=== PATIENT | female | born 1940 | race Caucasian/White ===

== ENCOUNTER 2017-11-06 13:25 | Day surgery (SDC) | payer MEDICARE ==
[~2017-11-06] VITALS: Ht 167.6 cm; Wt 75.0 kg
[~2017-11-06 13:25] MED LIST: ARIMIDEX PO; ASPI325 PO; Arthritis Pain650 M1 PO; BENHYD1012; CALCIUM + D3 E1 EACH PO; Ferrous Sulfat325 M2 PO; OMEPRAZOLE MAGN20 MG PO; [UNRECOGNIZED DRUG - CODE] PO
== END 2017-11-06 18:05 | disposition home or self-care (01) ==
LOC: ORSCSDS 13:25
PROVIDERS: Podiatrist Foot & Ankle Surgery
PROC: 0SGM04Z Fusion of Right Metatarsal-Phalangeal Joint with Internal Fixation Device, Open Approach (ICD-10-PCS; principal; 2017-11-06 14:45)
PROC: 0L8V0ZZ Division of Right Foot Tendon, Open Approach (ICD-10-PCS; principal; 2017-11-06 14:45)
PROC: 0QSN04Z Reposition Right Metatarsal with Internal Fixation Device, Open Approach (ICD-10-PCS; principal; 2017-11-06 14:45)
DX: M20.11 Hallux valgus (acquired), right foot (principal); M20.41 Other hammer toe(s) (acquired), right foot; S93.129A Dislocation of metatarsophalangeal joint of unspecified toe(s), initial encounter; I10 Essential (primary) hypertension; E78.00 Pure hypercholesterolemia, unspecified; E11.9 Type 2 diabetes mellitus without complications; Z79.899 Other long term (current) drug therapy
CPT/HCPCS: C1713; J0171; J0690; J1100; J2405; J3010; J7120

== ENCOUNTER → 2018-06-25 | Outpatient (CLI) | payer MEDICARE ==
[2018-06-27 15:07] LABS: HPV 16 Negative (Negative); HPV 18 Negative (Negative); HPV OTHER HR TYPES Negative (Negative)
== END | disposition home or self-care (01) ==
LOC: LAB SHORT 14:37 → LAB 14:37
PROVIDERS: Obstetrics & Gynecology
DX: Z01.419 Encounter for gynecological examination (general) (routine) without abnormal findings (principal)
CPT/HCPCS: 87624; G0123

== ENCOUNTER 2018-09-21 08:45 | Day surgery (SDC) | payer MEDICARE ==
[~2018-09-21] VITALS: Ht 167.6 cm; Wt 72.9 kg
[2018-09-21] MEDS ORDERED: VITAMIN D10000 UNIT PO (09:33)
== END 2018-09-21 12:23 | disposition home or self-care (01) ==
LOC: ORSCSDS 08:45
PROVIDERS: Podiatrist Foot & Ankle Surgery
PROC: 0SGN04Z Fusion of Left Metatarsal-Phalangeal Joint with Internal Fixation Device, Open Approach (ICD-10-PCS; principal; 2018-09-21 10:00)
DX: M20.12 Hallux valgus (acquired), left foot (principal); M20.22 Hallux rigidus, left foot; I10 Essential (primary) hypertension; K21.9 Gastro-esophageal reflux disease without esophagitis; Z79.899 Other long term (current) drug therapy; Z79.82 Long term (current) use of aspirin
CPT/HCPCS: C1713; J0690; J2250; J3010; J7120

== ENCOUNTER 2021-04-21 09:25 | Day surgery (SDC) | payer MEDICARE ==
[~2021-04-21] VITALS: Ht 165.1 cm; Wt 71.3 kg
[~2021-04-21 09:25] MED LIST changes: +BENHYD1012 PO; +LEVSOD75 PO; +OMEP20ER PO; +PEPCID20 MG PO; +VITAMIN D10000 UNIT PO
--- NOTE | 2021-04-21 18:45 | NUR ---
SHIFT SUMMARY PATIENT NEW ADMIT TO UNIT POST OP LEFT TOTAL HIP. ALERT AND ORIENTED. TOLERATING REGULAR DIET AND FLUIDS. ROUTINE IV FLUIDS AND ABX RUNNING. MINIMAL PAIN, CONTROLLED WITH NON-NARCOTIC PAIN MEDS. BULKY DRESSING TO LEFT HIP C/D/I. WORKED WELL WITH PHYSICAL THERAPY. SBA WITH FWW AND GAIT BELT UP TO CHAIR AND COMMODE. VOIDING WELL. PLAN TO DISCHARGE 04/22/21 AFTER CLEARING PHYSICAL THERAPY.
[2021-04-22 04:40] LABS: BASOPHILS ABSOLUTE AUTO 0.01 K/mm3 (0.00-0.23); BASOPHILS PERCENT AUTO 0 % (0-2); Hematocrit 25.1 % (33.0-51.0); Hemoglobin 8.2 g/dL (11.5-16.0); LYMPHOCYTES ABSOLUTE AUTO 0.93 K/mm3 (0.84-5.20); LYMPHOCYTES PERCENT AUTO 7 % (21-46); MONOCYTES ABSOLUTE AUTO 1.06 K/mm3 (0.16-1.47); MONOCYTES PERCENT AUTO 9 % (4-13); Mean Corpuscular HGB 26.4 pg (26.0-34.0); Mean Corpuscular HGB Conc 32.7 g/dL (31.5-36.5); Mean Corpuscular Volume 81 fL (80-100); Mean Platelet Volume 10.1 fL (9.1-12.4); Platelet Count 268 K/mm3 (150-400); RDW Coefficient Variation 14.4 % (11.7-14.2); RDW Standard Deviation 42.1 fL (35.1-46.3); Red Blood Cell Count 3.11 M/mm3 (3.80-5.20); White Blood Cell Count 12.49 K/mm3 (4.00-11.30)
[2021-04-22 05:18] LABS: EOSINOPHILS PERCENT AUTO 0 % (0-6); IMMATURE GRAN ABSOLUTE AUTO 0.05 K/mm3 (0.00-0.10); IMMATURE GRAN PERCENT AUTO 0 % (0-1); NEUTROPHILS ABSOLUTE AUTO 10.44 K/mm3 (1.96-9.15); NEUTROPHILS PERCENT AUTO 84 % (41-73)
[2021-04-22 05:26] LABS: Anion Gap 8 mmol/L (6-16); Blood Urea Nitrogen 20 mg/dL (8-24); Bun/Creatinine Ratio 23.3 (12.0-20.0); CO2, Blood 24 mmol/L (21-32); Calcium, Blood 8.9 mg/dL (8.5-10.1); Chloride, Blood 96 mmol/L (98-108); Creatinine, Blood 0.86 mg/dL (0.40-1.00); Glomerular Filtration Rate >60 (60-); Glucose, Blood 199 mg/dL (70-99); Magnesium, Blood 1.8 mg/dL (1.6-2.4); Potassium, Blood 4.4 mmol/L (3.5-5.5); Sodium, Blood 128 mmol/L (136-145)
--- NOTE | 2021-04-22 06:44 | NUR ---
PT A/OX4. VSS ON RA. PAIN MANAGED WELL W/ SCHEDULED AND PRN PAIN MEDS. PT AMBULATED IN HALLWAY AND TO TOILET W/ FWW AND GAITBELT. PATIENT ONLY SLEPT 2-2 HRS, PER PT THIS IS NORMAL FOR HER. USING CALL LIGHT TO MAKE NEEDS KOWN.
[2021-04-22] MEDS ORDERED: ENOX40I SC (11:24)
--- NOTE | 2021-04-22 12:53 | NUR ---
DISCHARGE SUMMARY PATIENT ALERT AND ORIENTED THROUGHOUT SHIFT. TOLERATING REGULAR DIET AND FLUIDS. VOIDING WELL. CLEARED FOR DISCHARGE BY PHYSICAL THERAPY. PAIN CONTROLLED WITH PO PAIN MEDS. DISCHARGE EDUCATION GIVEN ON WOUND CARE, ACTIVITY, NEW RXS, FOLLOW UP APPOINTMENTS. IV DC'D WNL. PATIENT LEFT UNIT VIA WHEELCHAIR FOR HOME AT 1220.
== END 2021-04-22 12:15 | disposition home or self-care (01) ==
LOC: ORSCMMR 09:25 → SURS 13:47 → ORSCMMR 14:15 → ORD 14:15 → ORSCMMR 04-22 12:15
PROVIDERS: Orthopaedic Surgery
PROC: 0SRB0JA Replacement of Left Hip Joint with Synthetic Substitute, Uncemented, Open Approach (ICD-10-PCS; principal; 2021-04-21 10:45)
PROC: 8E0YXBZ Computer Assisted Procedure of Lower Extremity (ICD-10-PCS; principal; 2021-04-21 10:45)
DX: M16.12 Unilateral primary osteoarthritis, left hip (principal); I10 Essential (primary) hypertension; J45.909 Unspecified asthma, uncomplicated; K21.9 Gastro-esophageal reflux disease without esophagitis; E03.9 Hypothyroidism, unspecified; Z79.899 Other long term (current) drug therapy
CPT/HCPCS: 36415; 72170; 80048; 83735; 85025; 97110; 97116; 97162; 97166; 97530; 97535; A9270; C1713; C1776; J0171; J0690; J0735; J1100; J1650; J1885; J2250; J2370; J2405; J2704; J2795; J3010; J3370; J7120

== ENCOUNTER 2021-05-05 11:58 | Emergency (ER) | payer MEDICARE ==
[~2021-05-05] VITALS: Ht 157.5 cm; Wt 77.1 kg
[~2021-05-05 11:58] MED LIST changes: +ENOX40I SC
[2021-05-05] MEDS ORDERED: HYDROCODONE-AC1 EA13 PO (12:36)
[2021-05-05 13:38] LABS: BASOPHILS ABSOLUTE AUTO 0.02 K/mm3 (0.00-0.23); BASOPHILS PERCENT AUTO 0 % (0-2); EOSINOPHILS ABSOLUTE AUTO 0.07 K/mm3 (0.00-0.68); EOSINOPHILS PERCENT AUTO 1 % (0-6); Hematocrit 25.8 % (33.0-51.0); Hemoglobin 8.5 g/dL (11.5-16.0); IMMATURE GRAN ABSOLUTE AUTO 0.06 K/mm3 (0.00-0.10); IMMATURE GRAN PERCENT AUTO 1 % (0-1); LYMPHOCYTES ABSOLUTE AUTO 1.75 K/mm3 (0.84-5.20); LYMPHOCYTES PERCENT AUTO 29 % (21-46); MONOCYTES ABSOLUTE AUTO 0.53 K/mm3 (0.16-1.47); MONOCYTES PERCENT AUTO 9 % (4-13); Mean Corpuscular HGB 27.2 pg (26.0-34.0); Mean Corpuscular HGB Conc 32.9 g/dL (31.5-36.5); Mean Corpuscular Volume 83 fL (80-100); NEUTROPHILS ABSOLUTE AUTO 3.52 K/mm3 (1.96-9.15); NEUTROPHILS PERCENT AUTO 59 % (41-73); RDW Standard Deviation 46.9 fL (35.1-46.3); Red Blood Cell Count 3.12 M/mm3 (3.80-5.20); White Blood Cell Count 5.95 K/mm3 (4.00-11.30)
[2021-05-05 13:41] LABS: Mean Platelet Volume 10.8 fL (9.1-12.4); Platelet Count 94 K/mm3 (150-400)
[2021-05-05 14:31] LABS: Source, Urine Clean Catch
[2021-05-05 14:33] LABS: Alanine Aminotransfer (ALT/SGP 20 U/L (12-78); Albumin, Blood 2.9 g/dL (3.4-5.0); Albumin/Globulin Ratio 0.8 (0.8-1.8); Alk Phos 74 U/L (50-136); Anion Gap 9 mmol/L (6-16); Aspartate Aminotrans (AST/SGOT 17 U/L (12-37); Bilirubin, Total 0.3 mg/dL (0.1-1.0); Blood Urea Nitrogen 18 mg/dL (8-24); Bun/Creatinine Ratio 26.2 (12.0-20.0); CO2, Blood 24 mmol/L (21-32); Calcium, Blood 8.9 mg/dL (8.5-10.1); Chloride, Blood 97 mmol/L (98-108); Creatinine, Blood 0.69 mg/dL (0.40-1.00); Globulin, Blood 3.6 g/dL (2.2-4.0); Glomerular Filtration Rate >60 (60-); Glucose, Blood 109 mg/dL (70-99); Potassium, Blood 4.1 mmol/L (3.5-5.5); Sodium, Blood 130 mmol/L (136-145); Total Protein, Blood 6.5 g/dL (6.4-8.2)
[2021-05-05 14:49] LABS: Appearance, Urine Clear (Clear); Bilirubin, Urine Neg (Neg); Blood, Urine Neg (Neg); Glucose Qualitative, Urine Neg (Neg); Ketones, Urine Neg (Neg); Leukocyte Esterase, Urine Neg (Neg); Nitrite, Urine Neg (Neg); Protein, Urine Neg (Neg); Specific Gravity, Urine 1.005 (1.003-1.022); Urobilinogen, Urine NORM (Normal); pH, Urine 6.5 (5.0-8.0)
[2021-05-05 14:50] LABS: Color, Urine Pale Yellow (P-Yellow)
[2021-05-05] MEDS ORDERED: OXAYDO5 M1 PO (16:25)
== END 2021-05-05 16:30 | disposition home or self-care (01) ==
LOC: ER 11:58
PROVIDERS: Emergency Medicine
DX: M25.552 Pain in left hip (principal); G89.18 Other acute postprocedural pain; F05 Delirium due to known physiological condition; Z88.2 Allergy status to sulfonamides
CPT/HCPCS: 36415; 73502; 73562-LT; 80053; 81003; 85025; 99284-25; A9270

== ENCOUNTER 2023-03-14 10:03 | Inpatient (IN) | payer MEDICARE ==
[~2023-03-14] VITALS: Ht 167.6 cm; Wt 74.1 kg
[~2023-03-14 10:03] MED LIST changes: +HYDROCODONE-AC1 EA13 PO; +OXAYDO5 M1 PO
[2023-03-14 10:33] LABS: BASOPHILS ABSOLUTE AUTO 0.02 K/mm3 (0.00-0.23); BASOPHILS PERCENT AUTO 0 % (0-2); EOSINOPHILS ABSOLUTE AUTO 0.01 K/mm3 (0.00-0.68); EOSINOPHILS PERCENT AUTO 0 % (0-6); Hematocrit 35.8 % (33.0-51.0); Hemoglobin 12.6 g/dL (11.5-16.0); IMMATURE GRAN ABSOLUTE AUTO 0.02 K/mm3 (0.00-0.10); IMMATURE GRAN PERCENT AUTO 0 % (0-1); LYMPHOCYTES PERCENT AUTO 23 % (21-46); MONOCYTES ABSOLUTE AUTO 0.58 K/mm3 (0.16-1.47); MONOCYTES PERCENT AUTO 13 % (4-13); Mean Corpuscular HGB 31.9 pg (26.0-34.0); Mean Corpuscular HGB Conc 35.2 g/dL (31.5-36.5); Mean Corpuscular Volume 91 fL (80-100); Mean Platelet Volume 10.1 fL (9.1-12.4); NEUTROPHILS ABSOLUTE AUTO 2.82 K/mm3 (1.96-9.15); NEUTROPHILS PERCENT AUTO 64 % (41-73); Platelet Count 207 K/mm3 (150-400); RDW Coefficient Variation 12.1 % (11.7-14.2); RDW Standard Deviation 40.3 fL (35.1-46.3); Red Blood Cell Count 3.95 M/mm3 (3.80-5.20); White Blood Cell Count 4.45 K/mm3 (4.00-11.30)
[2023-03-14 10:54] LABS: International Normalized Ratio 0.96; Prothrombin Time Results 10.1 Sec (9.7-11.5)
[2023-03-14 11:04] LABS: Albumin, Blood 3.5 g/dL (3.4-5.0); Albumin/Globulin Ratio 1.1 (0.8-1.8); Bilirubin, Total 0.6 mg/dL (0.1-1.0); Bun/Creatinine Ratio 18.6 (12.0-20.0); Calcium, Blood 8.9 mg/dL (8.5-10.1); Creatinine, Blood 0.81 mg/dL (0.40-1.00); Globulin, Blood 3.1 g/dL (2.2-4.0); Potassium, Blood 4.4 mmol/L (3.5-5.5); Total Protein, Blood 6.6 g/dL (6.4-8.2)
[2023-03-14 14:00] VITALS: BP 179/58
--- NOTE | 2023-03-14 14:57 | NUR ---
MEDICATION LIST VERIFIED FROM PHARMACY
[2023-03-14 15:50] VITALS: BP 170/67
[2023-03-14 15:51] VITALS: BP 170/67
--- NOTE | 2023-03-14 18:14 | NUR ---
PT ARRIVED FROM ER THIS AFTERNOON. SEE ADMISSION CHARTING FOR FULL NEURO ASSESSMENT. PT ARRIVES A/O X3, SHE HAS EQUAL STRENGTH BETWEEN LEFT AND RIGHT SIDES. BUT APPEARS TO HAVE POOR COORDINATION WITH RT SIDE. FINE MOTOR SKILLS SEEM TO BE VERY DECREASED. PT REPORTS RIGHT SIDED PERIPHERAL VISION IS BLURRED, AND REPORTS SLITS OF BLINDNESS IN HER RIGHT SIDE OF VISION IN BOTH EYES. NO NYSTAGMUS NOTED, NO EXTRAOCCULAR EYE MOVEMENTS NOTED DURING NEURO EXAM. PT IS A TWO PERSON ASSIST TO BEDSIDE COMMODE, DRAGS RIGHT FOOT WITH AMBULATION. SHE FOLLOWS COMMANDS, SHE DOES EXPRESSES THAT SHE IS FRUSTRATED WITH ADMISSION QUESTIONS. HTN NOTED, PER DR GRAVES IS AWARE PRESSURE IS BEING MAINTAINED WITHIN THIS RANGE AT THIS TIME. DAUGHTER IS AWARE OF LUNG CANCER DIAGNOSIS, AT THIS TIME WE WILL NOT BE SHARING DIAGNOSIS WITH SPOUSE PER REQUEST OF FAMILY. PT PASSED BEDSIDE SWALLOW TEST, ORDER OBTAINED FOR FULL DIET.
[2023-03-14 19:48] VITALS: BP 180/73
[2023-03-15] VITALS (9 sets, daily range): BP systolic 135–195; BP diastolic 60–79
[2023-03-15 04:21] LABS: BASOPHILS ABSOLUTE AUTO 0.01 K/mm3 (0.00-0.23); BASOPHILS PERCENT AUTO 0 % (0-2); EOSINOPHILS ABSOLUTE AUTO 0.02 K/mm3 (0.00-0.68); EOSINOPHILS PERCENT AUTO 0 % (0-6); Hematocrit 32.5 % (33.0-51.0); Hemoglobin 11.5 g/dL (11.5-16.0); IMMATURE GRAN ABSOLUTE AUTO 0.02 K/mm3 (0.00-0.10); IMMATURE GRAN PERCENT AUTO 0 % (0-1); LYMPHOCYTES ABSOLUTE AUTO 1.06 K/mm3 (0.84-5.20); LYMPHOCYTES PERCENT AUTO 23 % (21-46); MONOCYTES ABSOLUTE AUTO 0.54 K/mm3 (0.16-1.47); MONOCYTES PERCENT AUTO 12 % (4-13); Mean Corpuscular HGB 31.6 pg (26.0-34.0); Mean Corpuscular HGB Conc 35.4 g/dL (31.5-36.5); Mean Corpuscular Volume 89 fL (80-100); Mean Platelet Volume 10.1 fL (9.1-12.4); NEUTROPHILS ABSOLUTE AUTO 2.94 K/mm3 (1.96-9.15); NEUTROPHILS PERCENT AUTO 64 % (41-73); Platelet Count 204 K/mm3 (150-400); RDW Coefficient Variation 11.9 % (11.7-14.2); RDW Standard Deviation 38.5 fL (35.1-46.3); Red Blood Cell Count 3.64 M/mm3 (3.80-5.20); White Blood Cell Count 4.59 K/mm3 (4.00-11.30)
[2023-03-15 04:49] LABS: Bilirubin, Total 0.5 mg/dL (0.1-1.0); Bun/Creatinine Ratio 19.2 (12.0-20.0); Calcium, Blood 8.8 mg/dL (8.5-10.1); Creatinine, Blood 0.73 mg/dL (0.40-1.00); Globulin, Blood 2.9 g/dL (2.2-4.0); Potassium, Blood 3.8 mmol/L (3.5-5.5); Total Protein, Blood 5.9 g/dL (6.4-8.2)
--- NOTE | 2023-03-15 06:46 | NUR ---
SHIFT SUMMARY PT IS A/Ox3-4 AND MOSTLY COOPERATIVE WITH CARE PROVIDED BY MEMBERS OF STAFF. ANSWERS QUESTIONS APPROPRIATELY AND ABLE TO MAKE HER NEEDS KNOWN. NO ACUTE EVENTS OVERNIGHT. PT CONTINUES TO HAVE RIGHT SIDED DEFICITS INCLUDING FACIAL DROOP, ARM/LEG WEAKNESS, AND BLURRED VISION WHEN GAZING TO THE RIGHT. NO EXTRAOCCULAR MOVEMENTS NOTED. CARDIAC SHAY, REMAINS IN SR-ST, 60-100'S WITH NO C/O CP OR PRESSURE T/O THE NIGHT. SBP HAS RANGED IN 140-170'S. RESPIRATORY SHAY, MAINTAINS SPO2 >92% ON RA WITH NO C/O SOB OR DYSPNEA. ABLE TO ABULATE TO BSC WITH 1-2 PERSON ASSIST WITH FWW AND GAITBELT. MRI TO BE PERFORMED THIS AM, CHECK OFF SHEET COMPLETED. LR HAS BEEN INFUSING ORDERED VIA EMAR. NO NEW ORDERS AT THIS TIME, WILL REPORT TO ONCOMING RN. ELAINA MATOS AT THIS TIME.
--- NOTE | 2023-03-15 12:40 | NUR ---
UPDATE AT 1200, PT WAS HEARD ATTEMPTING TO SIT UP AT EDGE OF BED. THIS RN ENTERED ROOM AND ASKED IF THE PT NEEDED ANYTHING. PT STATED THAT SHE NEEDS TO "USE THE RESTROOM." THIS RN ASSISTED PT TO BEDSIDE COMMODE WITH GAIT BELT. PT ABLE TO SHUFFLE AND PIVOT TO COMMODE. PT REMINDED TO CALL FOR ASSISTANCE WHEN NEEDING TO GET UP. WIPES AND CALL LIGHT PLACED NEXT TO PT AND PT INSTRUCTED TO HIT THE CALL LIGHT BUTTON WHEN SHE WAS FINISHED. PT AGREED. AT 1205, THIS RN CHECKED ON PT, PT HAD CLIMBED BACK INTO BED ON HER OWN AND WAS TRYING TO SLIDE HERSELF UP IN THE BED. PT BOOSTED IN BED BY STAFF. PT REMINDED THAT SHE NEEDS TO CALL FOR ASSISTANCE, PT STILL VERBALLY AGREES. BED ALARM IN PLACE.
--- NOTE | 2023-03-15 12:48 | NUR ---
[facility] CONTACTED THIS RN ABOUT PRESNTATION OF PT. THIS RN ASSESSED PT, RIGHT FACIAL DROOP MORE PROMINENT AT THIS TIME. PT HAD SOME DIFFICULTY REMEBERING NAME OF HOSPITAL WHICH SHE WAS ABLE TO REMEMBER THIS MORNING. PT ASKED TO CLOSE HER EYES AND HOLD ARM OUT IN FRONT OF HERSELF, RIGHT ARM DRIFTED DOWN. PT PUPILS WERE DILATED TO 5 AND SLUGGISH. WHEN ASKED IF SYMPTOMS FEEL WORSE, PT ANSWERED "I THINK SO." PT CREMATORY ATTENDANT STRNGTH ASSESSED, RIGHT HAND WEAKNESS INCREASED FROM THIS MORNING ASSESSMENT. NOTIFIED OF PRESENT CONDITION.
--- NOTE | 2023-03-15 17:58 | NUR ---
SHIFT SUMMARY PT A/OX3-4 AT BEGINNING OF SHIFT, FORGETFUL AT TIMES. PT HAD SLIGHT RIGHT SIDED DEFICIT DURING MORNING ASSESSMENT. PT WAS ABLE TO TRANSFER TO [facility] WITH 1 PERSON ASSIST. VSS. AROUND MID SHIFT, PT WAS SEEN BY JEREMIAH NICK, SEE THERAPIST NOTES. PT CVA SYMPTOMS HAVE INCREASED AT THIS TIME, SEE THIS RN NOTES. PT ATTEMPTED TO CLIMB OUT OF BED ON HER OWN EVEN AFTER BEING INSTRUCTED TO CALL FOR ASSISTANCE, BED ALARM TURNED ON. PT RIGHT SIDE DEFICIT CONTINUED TO BECOME MORE PROMINENT, NOTIFED OF RECENT ASSESSMENT. PT SEEN BY PHYSICAL THERAPIST, SEE THERAPIST NOTE, PT NOW A 2 PERSON ASSIST. PT DAUGHTER UPDATED ON PT CONDITION. LR RUNNING PER EMAR.
[2023-03-16 01:19] VITALS: BP 144/60
[2023-03-16 03:26] VITALS: BP 155/58
--- NOTE | 2023-03-16 05:23 | NUR ---
SHIFT SUMMARY: Upon initial assessment- left side no deficits, right side weak, can shrug right shoulder and slightly lift right leg against gravity. Weak grasp on right hand. Reports blurred vision on right side and decreased sensation on right. Some expressive aphasia/ difficulty with word finding noted. Oriented x3. Right facial droop and left gaze preference. Unable to look all the way to the right laterally. Pupils equal and reactive. Pleasant and cooperative. Pt transfered back to bed with 2 person max assist and gait belt. At around 2100, she became anxious and tearful. She calmed down after drinking some water and repositioning. She had several incontinent episodes overnight and used the bedpan once. Bed bath done. Brief in place. Bed alarm in place, she has not tried to get out of bed tonight. She has slept and remained calm for the rest of the night after 2200.
[2023-03-16 07:28] VITALS: BP 157/84
--- NOTE | 2023-03-16 14:53 | NUR ---
Spiritual care visit conducted. Patient is sitting up in bed and alert. 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 Her dtr, Tiff, is present and aides in telling her stories. She is angry that this medical event has happened to her and wants GOd to fix it (along with the medical insurance collector). We talk through the complexities of the body and the healing process. Patient burst into tears the moment I started to pray and prayed outloud as well asking God for help and healing. We talk about how to remain steady in the storms and the power of her family and friends who are here to support and love her. She shows great signs of adapting to her situation and has increased peace. I will cotninue to remain available to pateint and family.
--- NOTE | 2023-03-16 14:58 | NUR ---
TRANSFER UPDATE REPORT GIVEN TO MED FLOOR RN AT 1358. HAD FAMILY VISITING AND [facility] AT BEDSIDE AT THIS TIME. [facility] VISIT CONCLUDED AND FAMILY UPDATED ON TRANSFER INFO. PT LEFT PCU AT 1430 VIA HOSPITAL BED. PT DAUGHTER PRESENT FOR TRANSFER.
[2023-03-16 15:20] VITALS: BP 174/73
--- NOTE | 2023-03-16 16:23 | NUR ---
LATE ENTRY- IN HOUSE TRANSFER PT TRANSFERED FROM PCU TO MED UNIT. FAMILY AT BEDSIDE. RIGHT SIDE DEFECIT WITH STUDDER/STAMMER. PT ABLE TO MAKE NEEDS KNOWN. PT APPEARS TO BE ANXIOUS. PER REPORT FROM WORK CHECKER, PT REPORTED BEING ANXIOUS AND STRESSED ABOUT HER CURRENT SITUATION AND ABILITY TO TAKE CARE OF HOUSE/FAMILY/PET NEEDS. PT IS RESTING QUIETLY NOW WITH EYES SHUT. CHANGED DIET TO 2 GRAM LOW SODIUM TO REFLECT DR. BRADY STATEMENT IN PROGRESS NOTE. PHYSICAL THERAPY CAME TO SEE PT ON HER ARRIVAL TO THE UNIT. R/A. PER REPORT, 2 PERSON MAX ASSIST.
--- NOTE | 2023-03-16 17:02 | NUR ---
CALLED DR. GRAVES TO CLARIFY DIET ORDER. CHANGED DIET TO ADA.
[2023-03-16 19:37] VITALS: BP 184/72
[2023-03-17 00:54] VITALS: BP 181/73
[2023-03-17 05:03] LABS: BASOPHILS ABSOLUTE AUTO 0.01 K/mm3 (0.00-0.23); BASOPHILS PERCENT AUTO 0 % (0-2); EOSINOPHILS PERCENT AUTO 0 % (0-6); Hematocrit 34.9 % (33.0-51.0); Hemoglobin 12.7 g/dL (11.5-16.0); IMMATURE GRAN ABSOLUTE AUTO 0.02 K/mm3 (0.00-0.10); IMMATURE GRAN PERCENT AUTO 0 % (0-1); LYMPHOCYTES ABSOLUTE AUTO 0.79 K/mm3 (0.84-5.20); LYMPHOCYTES PERCENT AUTO 9 % (21-46); MONOCYTES ABSOLUTE AUTO 0.87 K/mm3 (0.16-1.47); MONOCYTES PERCENT AUTO 9 % (4-13); Mean Corpuscular HGB 32.3 pg (26.0-34.0); Mean Corpuscular HGB Conc 36.4 g/dL (31.5-36.5); Mean Corpuscular Volume 89 fL (80-100); Mean Platelet Volume 9.8 fL (9.1-12.4); NEUTROPHILS ABSOLUTE AUTO 7.53 K/mm3 (1.96-9.15); NEUTROPHILS PERCENT AUTO 82 % (41-73); Platelet Count 214 K/mm3 (150-400); RDW Standard Deviation 39.1 fL (35.1-46.3); Red Blood Cell Count 3.93 M/mm3 (3.80-5.20); White Blood Cell Count 9.22 K/mm3 (4.00-11.30)
[2023-03-17 05:21] LABS: Bun/Creatinine Ratio 13.4 (12.0-20.0); Calcium, Blood 8.9 mg/dL (8.5-10.1); Creatinine, Blood 0.67 mg/dL (0.40-1.00); Potassium, Blood 3.1 mmol/L (3.5-5.5)
--- NOTE | 2023-03-17 05:57 | NUR ---
Shift Summary Pt c/o constipation at start of shift and impulsively tried to stand up to evacuate bowels despite severe L sided deficits. She has multiple loose BMs. Pt later complained of severe pain in her legs and was medicated per emar. Pt hypertensive t/o the night with systolic around 183, given PRN Hydralazine. She is very distressed by her situation and discomfort and had a few episodes of heavy anxiety.
[2023-03-17 07:24] VITALS: BP 123/96
--- NOTE | 2023-03-17 13:48 | NUR ---
Attempted to visit pt, but she appears tired. Her eyes are red, glossy. She states she hasn't gotten good rest the past couple of days. She denies any pain or SOB. Assisted her with readjusting pillows, and closed the door to her room to alleviate extra noises. Pt's granddaughter states via phone she will be arriving tomorrow to assist with decision making. Granddaughter is an RN.
--- NOTE | 2023-03-17 15:31 | NUR ---
Spiritual Care | Nurse Request Pt. is awake in bed and displays high levels of anxiety. Nurse contacted this director gift as they were concerned that the Pt. was verbalizing that she wanted to "give up and ." After nurse Tellez administered some medication Pastoral encouragement was given and this director gift connected her to her previous visit with Family Development Extension Specialist Tim. Pt. was mimicking verbally what was being said around her. It sounded like word salad. Pt. agreed to pray with this director gift. Pt. displayed evidence of lower anxiety and a calmer spirit.
--- NOTE | 2023-03-17 15:58 | NUR ---
Sent volunteer to visit with family for theraputic support
[2023-03-17 16:39] VITALS: BP 168/74
[2023-03-17 17:02] VITALS: BP 176/71
--- NOTE | 2023-03-17 18:07 | NUR ---
PT HAS BEEN PLEASANT TODAY. DID HAVE SOME EPISODE OF CRYING OUT AND WANTING TO BE DONE. THAT KELLY MAY TAKE HER. OFFERED COMFORT. RETAIL EXPERIENCE SPECIALIST CALLED AND SAW PT. ALSO HAD AN EPISODE OF LEG PAIN. MED PER EMAR. PT CONTINUES TO HAVE RT SIDE WEAKNESS. PT MORE RELAXED AT THIS TIME. NO NEW CONCERNS NOTED. BED IN LOW POSITION, CALL LITE IN REACH, BED ALARM ON FOR SAFETY
[2023-03-17 18:13] VITALS: BP 159/65
[2023-03-17 21:17] VITALS: BP 152/65
--- NOTE | 2023-03-18 01:06 | NUR ---
Patient keeps crying out saying just let me just let me , i just want to .
[2023-03-18 04:03] VITALS: BP 154/58
--- NOTE | 2023-03-18 05:34 | NUR ---
Shift Summary No c/o constipation this shift. Pt had two episodes of leg pain and despair, stating 'i want to ' repeatedly. She was given PRN IV Morphene for pain and the episodes quickly ended. Purewick in place draining urine well. Complete R sided deficit remains.
[2023-03-18 05:35] LABS: Bun/Creatinine Ratio 16.8 (12.0-20.0); Calcium, Blood 8.8 mg/dL (8.5-10.1); Creatinine, Blood 0.66 mg/dL (0.40-1.00); Potassium, Blood 3.6 mmol/L (3.5-5.5)
[2023-03-18 06:55] LABS: SARS-Cov-2 (COVID-19) PCR, MMC NEGATIVE (NEGATIVE)
[2023-03-18 07:13] VITALS: BP 169/71
[2023-03-18] MEDS ORDERED: Acetaminophen325 M1 PO (12:03)
[2023-03-18] MEDS ORDERED: AMLO5 PO (12:04)
[2023-03-18] MEDS ORDERED: ATOR80 PO (12:04)
[2023-03-18] MEDS ORDERED: ASPI81CH PO (12:04)
[2023-03-18] MEDS ORDERED: Prinivil10 MG PO (12:08)
[2023-03-18] MEDS ORDERED: INSULANPEN SC (12:08)
[2023-03-18] MEDS ORDERED: DOCU100 PO (12:08)
[2023-03-18] MEDS ORDERED: CLOP75 PO (12:09)
[2023-03-18] MEDS ORDERED: HYDR10 PO (12:12)
--- NOTE | 2023-03-18 13:27 | NUR ---
DC- REPORT CALLED AND GIVEN TO [facility]. ALL QUESTIONS ANSWERED. PT LEFT IN WC WITH TRANSPORT ACCOMPANIED BY DAUGHTER ANDREZ TO REHAB. PT LEFT IN STABLE CONDITION WITH ALL BELONGINGS.
[2023-03-19] MEDS ORDERED: Ativan0.5 MG SL (18:44)
== END 2023-03-18 13:07 | DRG 65 ==
LOC: ER 10:03 → MEDS 12:40 → PCU 12:40 → MEDS 03-16 14:42 → ENPENDDIS 03-18 11:11 → MEDS 03-18 13:07
PROVIDERS: Emergency Medicine; Family Medicine; Internal Medicine; ADMIT Internal Medicine
DX: I63.81 Other cerebral infarction due to occlusion or stenosis of small artery (principal); C34.12 Malignant neoplasm of upper lobe, left bronchus or lung; E87.1 Hypo-osmolality and hyponatremia; C78.1 Secondary malignant neoplasm of mediastinum; I62.9 Nontraumatic intracranial hemorrhage, unspecified; G81.91 Hemiplegia, unspecified affecting right dominant side; G93.40 Encephalopathy, unspecified; I65.02 Occlusion and stenosis of left vertebral artery; Z66 Do not resuscitate; I10 Essential (primary) hypertension; E78.5 Hyperlipidemia, unspecified; E11.65 Type 2 diabetes mellitus with hyperglycemia; R29.810 Facial weakness; Z20.822 Contact with and (suspected) exposure to COVID-19; E03.9 Hypothyroidism, unspecified; K44.9 Diaphragmatic hernia without obstruction or gangrene; R91.1 Solitary pulmonary nodule; R91.8 Other nonspecific abnormal finding of lung field; H53.9 Unspecified visual disturbance; E87.6 Hypokalemia; Z79.890 Hormone replacement therapy; Z79.891 Long term (current) use of opiate analgesic; Z79.899 Other long term (current) drug therapy; Z90.89 Acquired absence of other organs; Z88.2 Allergy status to sulfonamides; Z96.641 Presence of right artificial hip joint; Z90.12 Acquired absence of left breast and nipple; Z85.3 Personal history of malignant neoplasm of breast
CPT/HCPCS: 36415; 70450; 70496; 70498; 70553; 71045; 71250; 80048; 80053; 82947; 83036; 85025; 85610; 85730; 92523; 92526; 92610; 93005; 93010; 93306; 94762; 97112; 97112-CQ; 97116; 97162; 97530; 99285-25; A9270; A9579; J0360; J1650; J1815; J2270; J7120; Q9967; U0002

== ENCOUNTER 2023-03-19 15:46 | Emergency (ER) | payer MEDICARE ==
[~2023-03-19] VITALS: Ht 162.6 cm; Wt 63.5 kg
[~2023-03-19 15:46] MED LIST changes: +AMLO5 PO; +ASPI81CH PO; +ATOR80 PO; +Acetaminophen325 M1 PO; +CLOP75 PO; +DOCU100 PO; +HYDR10 PO; +INSULANPEN SC; +Prinivil10 MG PO
[2023-03-19 17:00] LABS: Calcium, Ionized (POC) 1.14 mmol/L (1.10-1.46); Chloride (POC) 97 mmol/L (98-108); Creatinine (POC) 0.7 mg/dL (0.6-1.0); Glucose (ISTAT POC) 154 mg/dL (70-99); Hemoglobin (POC) 12.6 g/dL (12.0-16.0); Sodium (POC) 128 mmol/L (135-148); Total CO2 (POC) 24 mmol/L (21-32)
[2023-03-19] MEDS ORDERED: Ativan0.5 MG SL (18:44)
[2023-03-19 19:00] VITALS: BP 150/62
== END 2023-03-19 19:47 | disposition home or self-care (01) ==
LOC: ER 15:46
PROVIDERS: Emergency Medicine
DX: I69.951 Hemiplegia and hemiparesis following unspecified cerebrovascular disease affecting right dominant side (principal); I69.920 Aphasia following unspecified cerebrovascular disease; Z88.2 Allergy status to sulfonamides; Z79.899 Other long term (current) drug therapy; Z79.82 Long term (current) use of aspirin; Z79.4 Long term (current) use of insulin
CPT/HCPCS: 70450; 80047; 85014; 93971; 99285-25

== ENCOUNTER → 2023-09-21 | Outpatient (CLI) | payer MEDICARE ==
[~2023-09-21] MED LIST changes: +Ativan0.5 MG SL
[2023-09-21 20:29] LABS: BASOPHILS ABSOLUTE AUTO 0.03 K/mm3 (0.00-0.23); BASOPHILS PERCENT AUTO 0 % (0-2); EOSINOPHILS ABSOLUTE AUTO 0.12 K/mm3 (0.00-0.68); EOSINOPHILS PERCENT AUTO 2 % (0-6); Hematocrit 27.5 % (33.0-51.0); Hemoglobin 9.5 g/dL (11.5-16.0); IMMATURE GRAN ABSOLUTE AUTO 0.06 K/mm3 (0.00-0.10); IMMATURE GRAN PERCENT AUTO 1 % (0-1); LYMPHOCYTES ABSOLUTE AUTO 2.43 K/mm3 (0.84-5.20); LYMPHOCYTES PERCENT AUTO 30 % (21-46); MONOCYTES ABSOLUTE AUTO 0.76 K/mm3 (0.16-1.47); MONOCYTES PERCENT AUTO 10 % (4-13); Mean Corpuscular HGB 30.5 pg (26.0-34.0); Mean Corpuscular HGB Conc 34.5 g/dL (31.5-36.5); Mean Corpuscular Volume 88 fL (80-100); Mean Platelet Volume 9.7 fL (9.1-12.4); NEUTROPHILS PERCENT AUTO 57 % (41-73); Platelet Count 344 K/mm3 (150-400); RDW Coefficient Variation 13.6 % (11.7-14.2); RDW Standard Deviation 43.2 fL (35.1-46.3); Red Blood Cell Count 3.11 M/mm3 (3.80-5.20)
[2023-09-21 20:53] LABS: Alanine Aminotransfer (ALT/SGP 30 U/L (12-78); Albumin, Blood 3.6 g/dL (3.4-5.0); Alk Phos 75 U/L (50-136); Anion Gap 6 mmol/L (6-16); Aspartate Aminotrans (AST/SGOT 16 U/L (12-37); Bilirubin, Total 0.3 mg/dL (0.1-1.0); Blood Urea Nitrogen 20 mg/dL (8-24); CHOL/HDL RATIO 2.8; CO2, Blood 26 mmol/L (21-32); Calcium, Blood 9.6 mg/dL (8.5-10.1); Chloride, Blood 96 mmol/L (98-108); Cholesterol 155 mg/dL (50-200); Creatinine, Blood 0.59 mg/dL (0.40-1.00); Globulin, Blood 3.5 g/dL (2.2-4.0); Glomerular Filtration Rate 89 (60-); Glucose, Blood 145 mg/dL (70-99); HDL Cholesterol 56 mg/dL (>39); LDL/HDL RATIO 1.2; Low Density Lipoprotein Chol 69 mg/dL (0-110); Potassium, Blood 4.4 mmol/L (3.5-5.5); Sodium, Blood 128 mmol/L (136-145); Total Protein, Blood 7.1 g/dL (6.4-8.2); Triglycerides 152 mg/dL (30-160); Very Low Density Lipoprot Chol 30 mg/dL (6-32)
== END ==
LOC: LAB 16:41 → LAB SHORT 16:41
PROVIDERS: Pediatrics Pediatric Nephrology
DX: I10 Essential (primary) hypertension (principal); E03.9 Hypothyroidism, unspecified; E78.5 Hyperlipidemia, unspecified
CPT/HCPCS: 80053; 80061; 84443; 85025

== ENCOUNTER → 2023-09-27 | Outpatient (CLI) | payer MEDICARE ==
[2023-09-27 16:10] LABS: Alanine Aminotransfer (ALT/SGP 29 U/L (12-78); Albumin, Blood 3.6 g/dL (3.4-5.0); Alk Phos 81 U/L (50-136); Anion Gap 7 mmol/L (6-16); Aspartate Aminotrans (AST/SGOT 13 U/L (12-37); Bilirubin, Total 0.5 mg/dL (0.1-1.0); Blood Urea Nitrogen 20 mg/dL (8-24); Bun/Creatinine Ratio 31.9 (12.0-20.0); CHOL/HDL RATIO 2.7; CO2, Blood 26 mmol/L (21-32); Calcium, Blood 9.1 mg/dL (8.5-10.1); Chloride, Blood 96 mmol/L (98-108); Cholesterol 162 mg/dL (50-200); Creatinine, Blood 0.63 mg/dL (0.40-1.00); Globulin, Blood 3.5 g/dL (2.2-4.0); Glomerular Filtration Rate 88 (60-); Glucose, Blood 188 mg/dL (70-99); HDL Cholesterol 60 mg/dL (>39); LDL/HDL RATIO 1.1; Low Density Lipoprotein Chol 68 mg/dL (0-110); Potassium, Blood 3.7 mmol/L (3.5-5.5); Sodium, Blood 129 mmol/L (136-145); Total Protein, Blood 7.1 g/dL (6.4-8.2); Triglycerides 170 mg/dL (30-160); Very Low Density Lipoprot Chol 34 mg/dL (6-32)
== END | disposition home or self-care (01) ==
LOC: LAB 13:00 → LAB SHORT 13:00
PROVIDERS: Nurse Practitioner Family
DX: E78.5 Hyperlipidemia, unspecified (principal); E03.9 Hypothyroidism, unspecified; I10 Essential (primary) hypertension
CPT/HCPCS: 80053; 80061; 84443

== ENCOUNTER 2023-11-06 22:55 | Emergency (ER) | payer MEDICARE ==
[~2023-11-06] VITALS: Ht 167.6 cm; Wt 77.1 kg
[2023-11-07] MEDS ORDERED: MIRALAX17 GM PO (00:36)
[2023-11-07] MEDS ORDERED: Celexa10 MG PO (00:37)
[2023-11-07] MEDS ORDERED: BUSP10 PO ×2 (00:38→03:49)
[2023-11-07] MEDS ORDERED: DICL75ER PO (00:39)
[2023-11-07] MEDS ORDERED: BACL10 PO ×2 (00:39→03:49)
[2023-11-07 03:12] LABS: Magnesium, Blood 1.9 mg/dL (1.6-2.4)
[2023-11-07 03:13] LABS: Albumin, Blood 3.4 g/dL (3.4-5.0); Bilirubin, Total 0.4 mg/dL (0.1-1.0); Bun/Creatinine Ratio 27.5 (12.0-20.0); Calcium, Blood 9.5 mg/dL (8.5-10.1); Creatinine, Blood 0.66 mg/dL (0.40-1.00); Globulin, Blood 3.3 g/dL (2.2-4.0); Phosphorus, Blood 3.1 mg/dL (2.5-4.9); Potassium, Blood 4.1 mmol/L (3.5-5.5); Total Protein, Blood 6.7 g/dL (6.4-8.2)
[2023-11-07 03:29] LABS: BASOPHILS ABSOLUTE AUTO 0.03 K/mm3 (0.00-0.23); BASOPHILS PERCENT AUTO 1 % (0-2); EOSINOPHILS ABSOLUTE AUTO 0.09 K/mm3 (0.00-0.68); EOSINOPHILS PERCENT AUTO 2 % (0-6); Hematocrit 25.8 % (33.0-51.0); Hemoglobin 8.3 g/dL (11.5-16.0); IMMATURE GRAN ABSOLUTE AUTO 0.02 K/mm3 (0.00-0.10); IMMATURE GRAN PERCENT AUTO 0 % (0-1); LYMPHOCYTES ABSOLUTE AUTO 2.03 K/mm3 (0.84-5.20); LYMPHOCYTES PERCENT AUTO 33 % (21-46); MONOCYTES ABSOLUTE AUTO 0.56 K/mm3 (0.16-1.47); MONOCYTES PERCENT AUTO 9 % (4-13); Mean Corpuscular HGB 24.6 pg (26.0-34.0); Mean Corpuscular HGB Conc 32.2 g/dL (31.5-36.5); Mean Corpuscular Volume 77 fL (80-100); Mean Platelet Volume 9.1 fL (9.1-12.4); NEUTROPHILS ABSOLUTE AUTO 3.41 K/mm3 (1.96-9.15); NEUTROPHILS PERCENT AUTO 56 % (41-73); Platelet Count 409 K/mm3 (150-400); RDW Coefficient Variation 16.9 % (11.7-14.2); RDW Standard Deviation 47.1 fL (35.1-46.3); Red Blood Cell Count 3.37 M/mm3 (3.80-5.20); White Blood Cell Count 6.14 K/mm3 (4.00-11.30)
[2023-11-07 04:00] VITALS: BP 135/67
== END 2023-11-07 04:15 | disposition home or self-care (01) ==
LOC: ER 22:55
PROVIDERS: Emergency Medicine
DX: M79.604 Pain in right leg (principal); M79.605 Pain in left leg; Z86.73 Personal history of transient ischemic attack (TIA), and cerebral infarction without residual deficits; Z79.02 Long term (current) use of antithrombotics/antiplatelets; Z79.4 Long term (current) use of insulin; Z79.899 Other long term (current) drug therapy; Z88.2 Allergy status to sulfonamides
CPT/HCPCS: 80053; 83735; 84100; 85025; 99283; A9270

== ENCOUNTER 2023-11-18 07:53 | Emergency (ER) | payer MEDICARE ==
[~2023-11-18] VITALS: Ht 167.6 cm; Wt 81.7 kg
[~2023-11-18 07:53] MED LIST changes: +BACL10 PO; +BUSP10 PO; +Celexa10 MG PO; +DICL75ER PO; +MIRALAX17 GM PO
[2023-11-18 08:16] LABS: BASOPHILS ABSOLUTE AUTO 0.01 K/mm3 (0.00-0.23); BASOPHILS PERCENT AUTO 0 % (0-2); EOSINOPHILS PERCENT AUTO 0 % (0-6); Hematocrit 21.6 % (33.0-51.0); Hemoglobin 6.8 g/dL (11.5-16.0); IMMATURE GRAN ABSOLUTE AUTO 0.03 K/mm3 (0.00-0.10); IMMATURE GRAN PERCENT AUTO 0 % (0-1); LYMPHOCYTES ABSOLUTE AUTO 0.83 K/mm3 (0.84-5.20); LYMPHOCYTES PERCENT AUTO 12 % (21-46); MONOCYTES ABSOLUTE AUTO 0.21 K/mm3 (0.16-1.47); MONOCYTES PERCENT AUTO 3 % (4-13); Mean Corpuscular HGB 23.2 pg (26.0-34.0); Mean Corpuscular HGB Conc 31.5 g/dL (31.5-36.5); Mean Corpuscular Volume 74 fL (80-100); NEUTROPHILS ABSOLUTE AUTO 5.71 K/mm3 (1.96-9.15); NEUTROPHILS PERCENT AUTO 84 % (41-73); Platelet Count 349 K/mm3 (150-400); RDW Coefficient Variation 17.2 % (11.7-14.2); RDW Standard Deviation 46.4 fL (35.1-46.3); Red Blood Cell Count 2.93 M/mm3 (3.80-5.20); White Blood Cell Count 6.79 K/mm3 (4.00-11.30)
[2023-11-18] MEDS ORDERED: Acetaminophen 500 MG Tab PO ONE (08:20)
[2023-11-18] MEDS ORDERED: Haloperidol Lactate Inj. 5 MG/ML Injection IV ONE (08:30)
[2023-11-18 08:36] LABS: Albumin, Blood 3.5 g/dL (3.4-5.0); Albumin/Globulin Ratio 1.1 (0.8-1.8); Bilirubin, Total 0.5 mg/dL (0.1-1.0); Bun/Creatinine Ratio 31.1 (12.0-20.0); Calcium, Blood 8.9 mg/dL (8.5-10.1); Creatinine, Blood 0.55 mg/dL (0.40-1.00); Globulin, Blood 3.2 g/dL (2.2-4.0); Potassium, Blood 3.8 mmol/L (3.5-5.5); Total Protein, Blood 6.7 g/dL (6.4-8.2)
[2023-11-18 08:58] LABS: IMMATURE RETIC FRACTION 28.9 % (2.3-16.0); RETIC HGB EQUIVALENT 21.7 pg (28.20-36.60); RETICULOCYTE ABSOLUTE 0.0395 M/mm3 (0.0200-0.1100); RETICULOCYTE COUNT PERCENT 1.38 % (0.50-2.50)
[2023-11-18] MEDS ORDERED: Morphine Sulfate 4 MG/1 ML Injection IV ONE ×2 (09:05→10:25)
[2023-11-18 09:12] LABS: Influenza A, PCR NEGATIVE (NEGATIVE); Influenza B, PCR NEGATIVE (NEGATIVE); Resp Syncytial Virus, PCR NEGATIVE (NEGATIVE); SARS-Cov-2 (COVID-19) PCR, MMC NEGATIVE (NEGATIVE)
[2023-11-18 09:23] LABS: Percent Saturation 4.8 % (15.0-50.0)
[2023-11-18] MEDS ORDERED: Sod Ferric Gluc Complx/Sucrose 125 MG in NS 100 ML IV ONE (11:00)
[2023-11-18 11:29] LABS: Source, Urine Straight Cath
[2023-11-18 11:36] LABS: Appearance, Urine Clear (Clear); Bilirubin, Urine Neg (Neg); Blood, Urine 1+ (Neg); Color, Urine Yellow (P-Yellow); Glucose Qualitative, Urine 2+ (Neg); Ketones, Urine Neg (Neg); Leukocyte Esterase, Urine Neg (Neg); Nitrite, Urine Neg (Neg); Protein, Urine 2+ (Neg); Specific Gravity, Urine 1.025 (1.003-1.022); Urobilinogen, Urine NORM (Normal)
[2023-11-18 11:45] LABS: Bacteria Rare /hpf; Mucus Light (0-Heavy); Squamous Epithelial Cells Not Seen /hpf (Few)
[2023-11-18] MEDS ORDERED: QUET25 PO (12:10)
[2023-11-18] MEDS ORDERED: Ferrous Sulfat325 MG PO (12:11)
[2023-11-18 14:15] VITALS: BP 134/71
--- NOTE | 2023-11-18 17:54 | NUR ---
Pt returned to er with altered mental staus and increased symptoms of pain and aggitation. Reivew of her day to day life with daughter. She is presenting the patient with more possible neurological symptoms. She has been vominging more. Presenting more sleep disturbance and severe bouts of pain. Advised will contact her primary and specialist for update. pt started on seroquel. May benefit from gabipentin she was on it at one time. kps score is 30%. We reviewed hospice, concern for increased suffering and congative decline. Suggest hospice for dignity and comfort. Pt very high fall risk. After speaking with daughter she has not had sleep shoing great strain from caregiver. will update provider.
== END 2023-11-18 14:28 | disposition home or self-care (01) ==
LOC: ER 07:53
PROVIDERS: Emergency Medicine
DX: D50.9 Iron deficiency anemia, unspecified (principal); R41.0 Disorientation, unspecified; R51.9 Headache, unspecified; G89.29 Other chronic pain; I10 Essential (primary) hypertension; E03.9 Hypothyroidism, unspecified; K21.9 Gastro-esophageal reflux disease without esophagitis; E78.5 Hyperlipidemia, unspecified; Z86.73 Personal history of transient ischemic attack (TIA), and cerebral infarction without residual deficits; Z79.02 Long term (current) use of antithrombotics/antiplatelets; Z79.4 Long term (current) use of insulin; Z79.899 Other long term (current) drug therapy; Z88.2 Allergy status to sulfonamides
CPT/HCPCS: 0241U; 51701; 70450; 80053; 81001; 82728; 83540; 83550; 84484; 85025; 85045; 86850; 86900; 86901; 93005; 93010; 96365-59; 96375-59; 96376-59; 99285-25; A9270; J1630; J2270; J2916

== ENCOUNTER → 2023-11-30 | Outpatient (CLI) | payer MEDICARE ==
[~2023-11-30] MED LIST changes: +Ferrous Sulfat325 MG PO; +QUET25 PO
[2023-11-30 20:40] LABS: Bun/Creatinine Ratio 31.2 (12.0-20.0); Calcium, Blood 9.5 mg/dL (8.5-10.1); Creatinine, Blood 0.64 mg/dL (0.40-1.00); Potassium, Blood 4.2 mmol/L (3.5-5.5)
== END | disposition home or self-care (01) ==
LOC: LAB SHORT 17:40
PROVIDERS: Nurse Practitioner Family
DX: E87.1 Hypo-osmolality and hyponatremia (principal)
CPT/HCPCS: 80048

== ENCOUNTER 2024-08-29 23:56 | Inpatient (IN) | payer MEDICARE ==
[~2024-08-29] VITALS: Ht 167.6 cm; Wt 77.1 kg
[2024-08-30] MEDS ORDERED: Albuterol 2.5 MG/3 ML VIAL INH SCH (00:10)
[2024-08-30] MEDS ORDERED: Ipratropium Bromide INH 0.02% 0.5 mg/2.5ML Vial INH SCH (00:10)
[2024-08-30 00:39] LABS: BASOPHILS ABSOLUTE AUTO 0.04 K/mm3 (0.00-0.23); BASOPHILS PERCENT AUTO 0 % (0-2); EOSINOPHILS ABSOLUTE AUTO 0.13 K/mm3 (0.00-0.68); EOSINOPHILS PERCENT AUTO 1 % (0-6); Hematocrit 34.9 % (33.0-51.0); Hemoglobin 11.8 g/dL (11.5-16.0); IMMATURE GRAN ABSOLUTE AUTO 0.06 K/mm3 (0.00-0.10); IMMATURE GRAN PERCENT AUTO 1 % (0-1); LYMPHOCYTES PERCENT AUTO 17 % (21-46); MONOCYTES ABSOLUTE AUTO 1.04 K/mm3 (0.16-1.47); MONOCYTES PERCENT AUTO 11 % (4-13); Mean Corpuscular HGB 28.9 pg (26.0-34.0); Mean Corpuscular HGB Conc 33.8 g/dL (31.5-36.5); Mean Corpuscular Volume 85 fL (80-100); Mean Platelet Volume 9.3 fL (9.1-12.4); NEUTROPHILS ABSOLUTE AUTO 6.44 K/mm3 (1.96-9.15); NEUTROPHILS PERCENT AUTO 69 % (41-73); Platelet Count 325 K/mm3 (150-400); RDW Standard Deviation 43.8 fL (35.1-46.3); Red Blood Cell Count 4.09 M/mm3 (3.80-5.20); White Blood Cell Count 9.31 K/mm3 (4.00-11.30)
[2024-08-30] MEDS ORDERED: Furosemide 10 MG/ML 4ML Vial IV ONE (00:50)
[2024-08-30 01:03] LABS: Albumin/Globulin Ratio 0.8 (0.8-1.8); Bilirubin, Total 0.6 mg/dL (0.1-1.0); Bun/Creatinine Ratio 36.9 (12.0-20.0); Calcium, Blood 9.5 mg/dL (8.5-10.1); Creatinine, Blood 0.68 mg/dL (0.40-1.00); Globulin, Blood 3.7 g/dL (2.2-4.0); Potassium, Blood 3.9 mmol/L (3.5-5.5); Total Protein, Blood 6.7 g/dL (6.4-8.2)
[2024-08-30] MEDS ORDERED: FLU VACC TS2024-25(6MOS UP)/PF 45 MCG/0.5 ML SYRINGE IM ONE (02:35)
[2024-08-30] MEDS ORDERED: Ondansetron HCl 2 MG / ML 2ML Vial IV PRN (02:35)
[2024-08-30] MEDS ORDERED: Ipratropium/Albuterol SulF 2.5-0.5MG/3 ML Amp INH PRN (02:35)
[2024-08-30] MEDS ORDERED: Midazolam HCl 1MG / ML 2ML Vial IV ONE (03:30)
[2024-08-30] MEDS ORDERED: Acetaminophen 500 MG Tab PO ONE (03:30)
[2024-08-30] MEDS ORDERED: FERSU300 PO (04:19)
[2024-08-30] MEDS ORDERED: QUETIAPINE FUMA25 MG PO (04:20)
[2024-08-30] MEDS ORDERED: BUSPIRONE HCL10 M6 PO (04:20)
[2024-08-30] MEDS ORDERED: PROAIR DIGIHAL90 MCG INH (04:20)
[2024-08-30] MEDS ORDERED: ALBU90OI61 INH (04:21)
[2024-08-30] MEDS ORDERED: CELEXA10 MG PO (04:22)
[2024-08-30] MEDS ORDERED: LIPITOR80 MG PO (04:22)
[2024-08-30] MEDS ORDERED: SYNTHROID50 MCG PO (04:22)
[2024-08-30] MEDS ORDERED: Prinivil10 MG PO (04:23)
[2024-08-30] MEDS ORDERED: PLAVIX75 MG PO (04:23)
[2024-08-30] MEDS ORDERED: AMLODIPINE BESYL5 MG PO (04:23)
[2024-08-30] MEDS ORDERED: MUPIROCIN2210 TOP (04:24)
[2024-08-30] MEDS ORDERED: INSULIN GL100 UNIT/1 SC (04:25)
[2024-08-30 04:56] LABS: BASOPHILS ABSOLUTE AUTO 0.04 K/mm3 (0.00-0.23); BASOPHILS PERCENT AUTO 0 % (0-2); EOSINOPHILS ABSOLUTE AUTO 0.04 K/mm3 (0.00-0.68); EOSINOPHILS PERCENT AUTO 0 % (0-6); Hematocrit 31.5 % (33.0-51.0); Hemoglobin 10.9 g/dL (11.5-16.0); IMMATURE GRAN ABSOLUTE AUTO 0.07 K/mm3 (0.00-0.10); IMMATURE GRAN PERCENT AUTO 1 % (0-1); LYMPHOCYTES ABSOLUTE AUTO 0.86 K/mm3 (0.84-5.20); LYMPHOCYTES PERCENT AUTO 9 % (21-46); MONOCYTES ABSOLUTE AUTO 0.97 K/mm3 (0.16-1.47); MONOCYTES PERCENT AUTO 10 % (4-13); Mean Corpuscular HGB 29.3 pg (26.0-34.0); Mean Corpuscular HGB Conc 34.6 g/dL (31.5-36.5); Mean Corpuscular Volume 85 fL (80-100); Mean Platelet Volume 9.2 fL (9.1-12.4); NEUTROPHILS ABSOLUTE AUTO 8.19 K/mm3 (1.96-9.15); NEUTROPHILS PERCENT AUTO 81 % (41-73); Platelet Count 305 K/mm3 (150-400); RDW Standard Deviation 43.4 fL (35.1-46.3); Red Blood Cell Count 3.72 M/mm3 (3.80-5.20); White Blood Cell Count 10.17 K/mm3 (4.00-11.30)
[2024-08-30 05:17] LABS: Albumin, Blood 2.8 g/dL (3.4-5.0); Albumin/Globulin Ratio 0.8 (0.8-1.8); Bilirubin, Total 0.5 mg/dL (0.1-1.0); Bun/Creatinine Ratio 34.1 (12.0-20.0); Calcium, Blood 9.1 mg/dL (8.5-10.1); Creatinine, Blood 0.67 mg/dL (0.40-1.00); Globulin, Blood 3.5 g/dL (2.2-4.0); Potassium, Blood 3.8 mmol/L (3.5-5.5); Total Protein, Blood 6.3 g/dL (6.4-8.2)
[2024-08-30 05:30] VITALS: BP 128/75
[2024-08-30] MEDS ORDERED: Acetaminophen 325 MG TABLET PO PRN (06:20)
[2024-08-30] MEDS ORDERED: Mupirocin 2% Ointment 22 GM TOP PRN (06:20)
--- NOTE | 2024-08-30 06:52 | NUR ---
SHIFT SUMMRY PT ADMITTED TO ROOM 364 AT 0515. MULTIPLE FAMILY MEMBERS PRESENT. ORDERED COMFORT CARE BEFORE PT BROUGHT UP FROM THE ED. PT 0RIENTED TO PERSON AND PLACE. LABORED BREATHING WITH ACTIVITY. PLAN FOR HOSPICE SOON.
[2024-08-30] MEDS ORDERED: Levothyroxine Sodium 0.05 MG Tab PO SCH (07:06)
[2024-08-30] MEDS ORDERED: Albuterol HFA200 ACT/6.7 GM INH INH PRN (07:10)
[2024-08-30] MEDS ORDERED: Enoxaparin 40 MG/0.4 ML SYR SC SCH (09:00)
[2024-08-30] MEDS ORDERED: Furosemide 10 MG/ML 4ML Vial IV SCH (09:00)
[2024-08-30] MEDS ORDERED: Insulin Glargine-Yfgn 100 Unit/mL 3 ML SYR SC SCH (09:00)
[2024-08-30] MEDS ORDERED: QUEtiapine Fumarate 25 MG Tab PO SCH (09:00)
[2024-08-30] MEDS ORDERED: Clopidogrel Bisulfate 75 MG Tab PO SCH (09:00)
[2024-08-30] MEDS ORDERED: Polyethylene Glycol 3350 17 gm PO SCH (09:00)
[2024-08-30] MEDS ORDERED: BusPIRone HCl 10 MG Tab PO SCH (09:00)
[2024-08-30] MEDS ORDERED: Citalopram Hydrobromide 10 MG TAB PO SCH (09:00)
[2024-08-30] MEDS ORDERED: LORazepam 1 MG Tab PO PRN (09:20)
[2024-08-30] MEDS ORDERED: Morphine Sulfate 20 MG/1ML 1 ML Oral Syringe SL PRN (09:20)
--- NOTE | 2024-08-30 11:28 | NUR ---
MET WITH PATIENT AND FAMILY. SHE IS ON COMFORT CARE. DISCUSSED CASE WITH PROVIDER AND BEDSIDE RN. REVIEWED MEDICATION AND ADDED COMFORT MEDS. FAMILY IS READY FOR PAUL TO COME HOME. DISCUSSED WITH GRAIN ELEVATOR OPERATOR. PATIENT IS REQUESTING TO HAVE HER IV'S REMOVED. REPORTED THAT SHE IS HUNGRY AND WOULD LIKE SOME OATMEAL AND FRUIT. OATMEAL MADE AND DELIVERED. FRUIT ORDERED FROM [facility], ALONG WITH COMFORT CART
[2024-08-30] MEDS ORDERED: Ativan1 MG PO (14:51)
[2024-08-30] MEDS ORDERED: MORP20L SL (14:52)
--- NOTE | 2024-08-30 15:39 | NUR ---
DISCHARGE NOTE PT DISCHARGED HOME ON HOSPICE AT 1535. PT'S FAMILY PROVIDED W/ VERBAL AND WRITTEN INSTRUCTIONS. PT A&OX2, AMB W/ ASSIST, TOLERATING PO, VOIDING, AND PAIN MANAGED. BELONGINGS WERE RETURNED AND PT ESCOURTED OUT VIA W/C BY FAMILY. [facility] TO MEET W/ PT AND FAMILY AT 1700 AT THEIR HOME.
== END 2024-08-30 15:39 | disposition hospice, home (50) | DRG 180 ==
LOC: ER 23:56 → MEDS 08-30 02:30 → ERHOLD 08-30 02:30 → MEDS 08-30 05:15
PROVIDERS: Student in an Organized Health Care Education/Training Program; ADMIT Internal Medicine
DX: C34.12 Malignant neoplasm of upper lobe, left bronchus or lung (principal); J96.01 Acute respiratory failure with hypoxia; C79.9 Secondary malignant neoplasm of unspecified site; I31.39 Other pericardial effusion (noninflammatory); I69.351 Hemiplegia and hemiparesis following cerebral infarction affecting right dominant side; J91.0 Malignant pleural effusion; Z51.5 Encounter for palliative care; Z66 Do not resuscitate; I10 Essential (primary) hypertension; I69.392 Facial weakness following cerebral infarction; I69.320 Aphasia following cerebral infarction; E03.9 Hypothyroidism, unspecified; E78.5 Hyperlipidemia, unspecified; K21.9 Gastro-esophageal reflux disease without esophagitis; Z79.02 Long term (current) use of antithrombotics/antiplatelets; Z79.890 Hormone replacement therapy; Z88.2 Allergy status to sulfonamides; Z85.3 Personal history of malignant neoplasm of breast; Z96.641 Presence of right artificial hip joint
CPT/HCPCS: 71045; 71260; 80053; 83880; 84484; 85025; 93005; 93010; 94644; 94664; 99285; A9270; J1815; J2250; Q9967